=== PATIENT | female | born 1995 | race Caucasian/White ===

== ENCOUNTER 2017-02-21 11:21 | Inpatient (IN) | payer OTHER ==
[2017-02-21] VITALS (23 sets, daily range): BP systolic 98–133; BP diastolic 52–82
[~2017-02-21] VITALS: Ht 162.6 cm; Wt 69.0 kg
[2017-02-21] MEDS ORDERED: PRENTAB9 PO (11:53)
[2017-02-21] MEDS ORDERED: LACTATED RINGER'S 1000 ML IV STA (12:09)
--- NOTE | 2017-02-21 12:36 | HPEPDOC ---
Obstetrical History & Physical General Date of Admission Feb 21, 2017 at 12:08 History of Present Illness Rosana is a 21yo with read IUP at 39w3d presenting to L&D with report of large gush of fluid and continued leakage about an hour ago. Not feeling painful ctx, no vaginal bleeding, feels good movement. PMhx: benign course: benign Chief Complaint: LOF, term Information Provided By: Patient Care Care: Good Care Dating Final EDC: Feb 25, 2017 Final EDC by: LMP Antepartum Course Diagnos(e)s course: benign Height (inches): 64 Pre- weight (lbs.): 123 Admission Weight (lbs.): 155 Change in Weight (lbs.): 32 Past Medical History Past Obstetrical History : Past Obstetrical History: [employer]IAISON History: No pertinent history Past Medical History Medical History benign Surgical History: Denies/None Family History Significant Family History: No pertinent family hx Social History Marital Status: Family situation: Spouse/partner home Psychosocial History: No pertinent psych hx * Smoker: non-smoker Alcohol: Denies Drugs: denies Imunizations Tdap status: current Influenza Status: current Medications Scheduled Multivitamins/ ( 27-0.8 mg) 1 Tab Tab 1 TAB PO DAILY Physical Examination Physical Examination GENERAL: Alert and oriented times three. BREAST: . ABDOMEN: Gravid and non-tender to touch. FETUS: Is vertex (VTX) by sterile vaginal examination (SVE) HEART RATE: Regular rate and rhythm. LUNGS: Clear to auscultation (CTA). EXTREMITIES: trace edema of BLE Pertinent Laboratoy Data Blood Type: A+ RBC Antibody Screen: Negative HIV: Negative Hepatitis B: Negative Hepatitis C: Unknown Rapid Plasma Reagin: Nonreactive Rubella: Immune Varicella: Immune Chlamydia/Gonorrhea: Negative Group B Streptococcus: Negative Cystic Fibrosis: Negative Glucose Tolerance Test: 89 Anatomy Ultrasound Ultrasound Date: Oct 11, 2016 Placenta Location: Posterior Normal Anatomy: Yes Placenta Previa: No Steroid Therapy Steroid Therapy: No Vaginal Examination Dilation: 4 cm Effacement: 75% Station: -2 Cervical Consistency: Soft Cervical Position: Posterior Presentation: Cephalic presentation Assessment Heart Rate (FHR): 140 Variability: Moderate Accelerations: Positive Decelerations: None Tocometer Contractions: Yes Frequency: every 2-5 min. Duration: greater than 60 seconds Strength: palpated as mild Assessment/Plan Assessment Rosana is a 21yo with read IUP at 39w3d with PROM, grossly ruptured on exam. SCE 3-/-2. Irregular ctx. Cat I FHRT. Normal Vitals. Cephalic by SCE. GBS negative. PMhx: benign course: benign Plan Admit and orient. Bed Control Specialist and consent. Diet: clear liquids Labs and intravenous (IV) per unit protocol. Counseled on possibility of Pitocin augmentation Lactated Ringers (LR): Bolus 500 mL, then at 125 mL/hr. Anticipate normal spontaneous delivery () Dr. Rickey Fisher MD [place] MD Feb 21, 2017 12:36
[2017-02-21] MEDS: LR 1,000 ML IV SCH ×2 (12:45→20:22)
[2017-02-21 13:46] LABS: MEAN CORPUSCULAR HGB CONC 33.7 g/dl (32.0-36.5); MEAN CORPUSCULAR VOLUME 91.9 fl (80.0-96.0); RED CELL DISTRIBUTION WIDTH 12.9 % (11.5-14.5); WHITE BLOOD COUNT 9.7 K/mm3 (4.0-10.0)
[2017-02-21] MEDS ORDERED: FENTANYL 2MCG/ML ROPIVACAINE 0.2% NACL 250 ML CADD As Ordered ONE (20:25)
[2017-02-21] MEDS ORDERED: REFRIGERATOR IV KEYS XX PRN (21:30)
[2017-02-21] MEDS ORDERED: diphenhydrAMINE INJ 50MG/ML VIAL (J1200) IV PRN (21:30)
[2017-02-21] MEDS ORDERED: FENTANYL/ROPIVACAINE/NACL CADD 250 ML EPIDURAL SCH (21:30)
[2017-02-21] MEDS ORDERED: ePHEDrine SULFATE 25 MG/5 ML(5MG/ML) SYRINGE IV PRN (21:30)
[2017-02-21] MEDS ORDERED: EPIDURAL/PCA KEYS XX PRN (21:30)
[2017-02-21] MEDS ORDERED: NALOXONE INJ 0.4 MG/1 ML VIAL (J2310) IV PRN (21:30)
[2017-02-21] MEDS ORDERED: LACTATED RINGER'S 1000 ML IV PRN (21:30)
[2017-02-21] MEDS ORDERED: ONDANSETRON 4MG/2ML VIAL (J2405) IV PRN (21:30)
[2017-02-21] MEDS ORDERED: EPIDURAL COMMENT XX SCH (21:30)
[2017-02-22] VITALS (19 sets, daily range): BP systolic 101–176; BP diastolic 55–108
[2017-02-22] MEDS ORDERED: OXYTOCIN 30 UNITS IN 0.9% NaCl 500ML IV BAG (J2590) As Ordered ONE (01:29)
[2017-02-22] MEDS ORDERED: ceFAZolin 2 GM/D5W 50 ML IV BAG (J0690) As Ordered ONE (05:40)
[2017-02-22] MEDS ORDERED: BICITRA 30ML SOLN UDC As Ordered ONE (05:41)
[2017-02-22] MEDS ORDERED: BICITRA 30ML SOLN UDC PO ONE (05:45)
--- NOTE | 2017-02-22 05:47 | IPNPDOC ---
Text Note Date of Service The patient was seen on 02/22/17. NOTE Patient made excellent progress through labor to C/C/0. However, after 3 hours of pushing, she has experienced arrest of descent. Good pushing efforts, but labial edema and caput increasing with no gain in station. Patient counseled on PLTCS, all risks/benefits/alternatives discussed. Consent form signed and will proceed to OR. FHRT reassuring. Dr. Kayla Fisher MD [place]ET[place] VSRohan, I+O VSRohan, I+O Laboratory Tests 02/21/17 12:59 Red Blood Count 3.90 L, Mean Corpuscular Volume 91.9, Mean Corpuscular Hemoglobin 31.0, Mean Corpuscular Hemoglobin Concent 33.7, Red Cell Distribution Width 12.9 Vital Signs Date Time Temp Pulse Resp B/P Pulse Ox O2 Delivery O2 Flow Rate FiO2 02/22/17 01:50 102 18 111/59 02/22/17 01:22 99.5 I&O- Last 24 Hours up to 6 AM 02/22/17 06:00 Intake Total 1746 ml Output Total 650 ml Balance 1096 ml KAYLA FISHER MD Feb 22, 2017 05:47
[2017-02-22] MEDS ORDERED: LIDOCAINE PRES-FREE 2% 10ML AMP As Ordered ONE ×3 (05:51→07:24)
[2017-02-22] MEDS ORDERED: ONDANSETRON 4MG/2ML VIAL (J2405) As Ordered ONE (06:53)
[2017-02-22] MEDS ORDERED: KETOROLAC 60 MG/2 ML VIAL (J1885) As Ordered ONE (06:55)
[2017-02-22] MEDS ORDERED: MORPHINE PRES-FREE INJ 10 MG/10 ML VIAL (J2274) As Ordered ONE (06:56)
[2017-02-22] MEDS ORDERED: NALBUPHINE HCL 10 MG/ML AMP (J2300) IV PRN (06:59)
[2017-02-22] MEDS ORDERED: METOCLOPRAMIDE INJ 10MG/2ML VIAL (J2765) IV PRN (06:59)
[2017-02-22] MEDS ORDERED: ONDANSETRON 4MG/2ML VIAL (J2405) IV PRN ×2 (06:59→08:30)
[2017-02-22] MEDS ORDERED: NALOXONE INJ 0.4 MG/1 ML VIAL (J2310) IV PRN ×2 (06:59)
[2017-02-22] MEDS ORDERED: MEPERIDINE 50 MG/ML 1ML VIAL (J2175) As Ordered ONE (07:24)
[2017-02-22] MEDS ORDERED: RHOGAM 300 MCG (1500 IU) INJ (J2790) IM SCH (08:15)
[2017-02-22] MEDS ORDERED: PERCOCET 5MG/325MG TAB PO PRN ×2 (08:15→08:30)
[2017-02-22] MEDS ORDERED: MEASLES,MUMPS,RUBELLA VACCINE INJ (MMR-II) (90707) SC SCH (08:15)
[2017-02-22 08:19] LABS: CORD GAS ABE V -3.2; CORD GAS HCO3 V 24.4 MEQ/L; CORD GAS O2 SAT V 22.1 %; CORD GAS PCO2 V 53.7 mmHg; CORD GAS PH V 7.276 UNITS; CORD GAS PO2 V 14.6 mmHg; CORD GAS SBC V 19.9 MEQ/L; CORD GAS TCO2 V 26.1 MEQ/L
[2017-02-22 08:20] LABS: CORD GAS ABE A -2.7; CORD GAS HCO3 A 25.2 MEQ/L; CORD GAS O2 SAT A 16.3 %; CORD GAS PCO2 A 55.6 mmHg; CORD GAS PH A 7.274 UNITS; CORD GAS PO2 A 12.3 mmHg; CORD GAS SBC A 20.2 MEQ/L; CORD GAS TCO2 A 26.9 MEQ/L
[2017-02-22] MEDS ORDERED: fentaNYL 100 MCG/2 ML INJECTION (J3010) IV PRN (08:30)
[2017-02-22] MEDS ORDERED: LR 1,000 ML IV SCH (08:30)
[2017-02-22] MEDS: PRENATAL VITAMIN TAB PO SCH (09:00)
[2017-02-22] MEDS: DOCUSATE SODIUM 100 MG CAP PO SCH ×2 (09:00→21:00)
--- NOTE | 2017-02-22 09:18 | RO ---
DATE OF PROCEDURE: 02/22/2017 PREPROCEDURE DIAGNOSES: Term intrauterine with spontaneous rupture of membranes. Arrest of descent. POSTPROCEDURE DIAGNOSES: Term intrauterine with spontaneous rupture of membranes. Arrest of descent. SURGEON: Kayla Fisher MD DIGITAL PRINTER: Nick Arevalo MD CLINICAL SERVICE: Gynecology. MATERIAL FORWARDED TO THE LAB FOR EXAMINATION: Cord gases. INDICATION FOR OPERATION: Rosana is a 21-year-old 1, para 1-0-0-1 who had spontaneous rupture of membranes at 39 weeks and 3 days and progressed well in labor to complete complete, 0 station and experienced arrest of descent after pushing for 3 hours. DESCRIPTION OF FINDINGS: Female in cephalic presentation. 6 and 9. Weight 3544 grams or 7 pounds 13 ounces. Meconium was noted on entry into the uterus, otherwise she had normal appearing uterus, tubes and ovaries. INFECTION CLASSIFICATION: 2. ESTIMATED BLOOD LOSS: 500 mL. IV FLUIDS: 1900 mL lactated ringers. URINE OUTPUT: 600 mL of blood tinged urine. OPERATION PERFORMED: Primary low transverse section. DESCRIPTION OF OPERATION: After obtaining informed consent, Rosana was taken to the operating room. Morrison catheter was in place secondary to her epidural. Bilateral sequential compression devices were placed. She received 2 grams of IV Ancef prophylactically. She was prepped and draped in normal sterile fashion in dorsal supine position with a left lateral tilt. Time out was performed to confirm patient name, date of , procedure and indication. Surgical team, nursing staff, pediatrics and anesthesia were all in agreement. Epidural anesthesia was found to be adequate using Allis clamp and a Pfannenstiel skin incision was made with a scalpel and carried through to the underlying layer of fascia with the Bovie. The fascia was incised in the midline and the incision was extended laterally with Alvarenga scissors. Superior and inferior aspects of the facial incision were grasped with Juliana clamps, elevated and the underlying rectus muscles were dissected off bluntly and sharply. Peritoneum was entered digitally and the rectus muscles were in the midline. Peritoneal incision was extended superiorly and inferiorly with good visualization of the bladder. Bladder blade was inserted. The vesicouterine peritoneum was identified, grasped with pickups and entered sharply with Metzenbaum scissors. The incision was extended laterally and the bladder flap was created digitally. Bladder blade was reinserted and the lower uterine segment was scored in a transverse fashion with a scalpel. Uterus was entered bluntly and the incision was extended with traction. Bladder blade was removed and the infant's head was elevated to the level of the incision with use of forceps (head was deep in the pelvis from pushing efforts). Fundal pressure was applied and head was delivered atraumatically in the OA position. Anterior shoulder, posterior shoulder and corpus were delivered without difficulty. Nose and mouth were suctioned with bulb suction. Cord was clamped and cut and the was handed off to the awaiting nursing staff. Cord gases were obtained secondary to presence of meconium. Placenta was removed with uterine massage and traction on the umbilical cord and the uterus was exteriorized and cleared of all clot and debris. Uterine incision was repaired with #0 Vicryl suture in a running locking fashion and a second layer of #0 Monocryl was used to close the hysterotomy in an imbricating fashion. Uterine incision was inspected. Hemostasis noted. Posterior cul-de-sac was irrigated and the uterus was returned to the abdomen. Gutters were cleared of all clot and irrigated with hemostasis noted. Peritoneum was closed using #3-0 Vicryl suture in a running fashion. Rectus muscles were reapproximated with grwrxu-vo-[id number] stitch using #0 Vicryl suture. Fascia was reapproximated using #0 Vicryl suture in a running fashion. Subcutaneous tissue was copiously irrigated. The skin edges were reapproximated using three inverted interrupted stitches using #3-0 Vicryl suture. She did not need Bee's fascia to be reapproximated given her thin layer of subcutaneous tissue. The skin was closed with running subcuticular stitch using #4-0 Monocryl. Incision was cleaned using a wet lap and dried with a dry lap. Steri-Strips were applied in the usual fashion perpendicular to Pfannenstiel incision. Telfa was layered on top of the Steri-Strips followed by a dry sterile towel. Surgical drapes were removed and sterile towel was removed. Pressure dressing was applied over the entire surgical incision. Vagina was cleared of all blood clots without active bleeding noted. The fundus was firm at U -1 cm. All counts were correct times two. Procedure was without complication. She tolerated the procedure well and was taken to the recovery room in labor and delivery in stable condition. ALTHEA
[2017-02-22] MEDS: KETOROLAC 30 MG/ML VIAL (J1885) IV SCH ×2 (13:08→18:54)
[2017-02-23] MEDS: KETOROLAC 30 MG/ML VIAL (J1885) IV SCH ×3 (01:30→08:27)
[2017-02-23] MEDS: PERCOCET 5MG/325MG TAB PO PRN ×3 (01:41→19:01)
[2017-02-23 02:30] VITALS: BP 115/64
[2017-02-23 06:14] VITALS: BP 106/51
[2017-02-23 07:07] LABS: MEAN CORPUSCULAR HEMOGLOBIN 31.3 pg (27.0-33.0); MEAN CORPUSCULAR HGB CONC 33.3 g/dl (32.0-36.5); MEAN CORPUSCULAR VOLUME 94.1 fl (80.0-96.0); RED CELL DISTRIBUTION WIDTH 13.4 % (11.5-14.5); WHITE BLOOD COUNT 20.4 K/mm3 (4.0-10.0)
[2017-02-23] MEDS: PRENATAL VITAMIN TAB PO SCH (08:23)
[2017-02-23] MEDS: DOCUSATE SODIUM 100 MG CAP PO SCH ×2 (08:23→22:02)
[2017-02-23] MEDS: IBUPROFEN 800 MG TAB PO SCH ×2 (08:52→17:44)
[2017-02-23 10:00] VITALS: BP 114/58
[2017-02-23 14:00] VITALS: BP 110/68
--- NOTE | 2017-02-23 16:54 | IPNPDOC ---
Text Note Date of Service The patient was seen on 02/23/17. NOTE Post-Op Day 1 Rosana is a 21yo [id number] doing well on post-op day 1 s/p uncomplicated PLTCS indicated for arrest of descent at 39w4d after presenting for SROM. She is . Lochia normal, spontaneously voiding and ambulating without difficulty. Tolerating regular diet. Denies f/c/n/v/SOB/CP/KENDRICK/abdominal pain. Vitals wnl, afebrile Exam: General: WDWN, NAD, resting comfortably Abdomen: soft, NTTP, fundus firm u-2cm, pfannensteil with no surrounding erythema, no drainage, steri strips in place Extremities: no tenderness of calves bilaterally H/H (admission) 12.1/35.8 H/H (POD 1) 11.1/33.4 Surgical EBL 500ml Assessment: Rosana is a 21yo [id number] doing well on post-op day 1 s/p uncomplicated PLTCS indicated for arrest of descent at 39w4d after presenting for SROM. Vitals wnl, benign exam. No e/o infection, hemodynamically stable. Plan: -routine /post-operative care -ibuprofen/percocet for pain control -encourage , ambulation and use of IS -likely discharge to home tomorrow Dr. Rickey Fisher MD [place] Wu, I+O Rohan HARRIS I+O Laboratory Tests 02/23/17 06:34 Red Blood Count 3.55 L, Mean Corpuscular Volume 94.1, Mean Corpuscular Hemoglobin 31.3, Mean Corpuscular Hemoglobin Concent 33.3, Red Cell Distribution Width 13.4 Vital Signs Date Time Temp Pulse Resp B/P Pulse Ox O2 Delivery O2 Flow Rate FiO2 02/23/17 14:00 97.6 94 18 110/68 99 02/23/17 02:30 Room Air I&O- Last 24 Hours up to 6 AM 02/23/17 05:59 Intake Total 6320 ml Output Total 8400 ml Balance -2080 ml RICKEY FISHER MD Feb 23, 2017 16:54
[2017-02-23 18:18] VITALS: BP 116/71
[2017-02-23 22:31] VITALS: BP 104/59
[2017-02-24] MEDS: PERCOCET 5MG/325MG TAB PO PRN ×2 (01:05→05:06)
[2017-02-24] MEDS: IBUPROFEN 800 MG TAB PO SCH ×2 (01:06→08:24)
[2017-02-24 06:00] VITALS: BP 114/73
--- NOTE | 2017-02-24 06:41 | IPNPDOC ---
Text Note Date of Service The patient was seen on 02/24/17. NOTE Post-Op Day 2 Rosana is a 21yo [id number] doing well on post-op day 2 s/p uncomplicated PLTCS indicated for arrest of descent at 39w4d after presenting for SROM. She is . Lochia normal, spontaneously voiding and ambulating without difficulty. Tolerating regular diet. Denies f/c/n/v/SOB/CP/KENDRICK/abdominal pain. Vitals wnl, afebrile Exam: General: WDWN, NAD, resting comfortably Cardiac: S1S2 present, no murmurs Lungs: CTAB, no w/c/r Abdomen: soft, NTTP, fundus firm u-2cm, pfannensteil with no surrounding erythema, no drainage, steri strips in place Extremities: no tenderness of calves bilaterally H/H (admission) 12.1/35.8 H/H (POD 1) 11.1/33.4 Surgical EBL 500ml Assessment: Rosana is a 21yo [id number] doing well on post-op day 2 s/p uncomplicated PLTCS indicated for arrest of descent at 39w4d after presenting for SROM. Vitals wnl, benign exam. No e/o infection, hemodynamically stable. Plan: -discharge to home today -Patient has home meds for discharge: percocet, motrin, miralax, minipill, lanolin -encourage -follow up with me in clinic in 2 weeks for incision check and then [address] Rickey Rodriguez MD [place] Rohan BEAVERS, I+O VSRohan, I+O Vital Signs Date Time Temp Pulse Resp B/P Pulse Ox O2 Delivery O2 Flow Rate FiO2 02/24/17 06:00 96.9 97 18 114/73 97 Room Air I&O- Last 24 Hours up to 6 AM 02/24/17 06:00 Output Total 600 ml Balance -600 ml RICKEY RODRIGUEZ MD Feb 24, 2017 06:41
--- NOTE | 2017-02-24 06:47 | DS.PDOC ---
Discharge Summary General Date of Admission Feb 21, 2017 at 12:08 Date of Discharge Feb 24, 2017 Attending Physician: RICKEY FISHER MD Discharge Summary PROCEDURES PERFORMED DURING STAY: Primary low transverse section ADMITTING DIAGNOSES: 1. Term intrauterine with spontaneous rupture of membranes DISCHARGE DIAGNOSES: 1. Term intrauterine with spontaneous rupture of membranes 2. Arrest of descent at 0 station after 3 hours of pushing COMPLICATIONS/CHIEF COMPLAINT: Spontaneous rupture of membranes HISTORY OF PRESENT ILLNESS/ HOSPITAL COURSE: Rosana is a 21 year old [id number] status post uncomplicated primary low transverse section indicated for arrest of descent at 39weeks 4days after presenting for spontaneous rupture of membranes, having normal labor course and then pushing for 3 hours with no progression of head beyond 0 station. Benign course. At time of discharge, vitals were within normal limits with benign exam. No evidence of infection, hemodynamically stable. DISCHARGE MEDICATIONS: percocet, motrin, lanolin, minipill, miralax ALLERGIES: Please see below. PHYSICAL EXAMINATION ON DISCHARGE: Vitals wnl, afebrile Exam: General: WDWN, NAD, resting comfortably Cardiac: S1S2 present, no murmurs Lungs: CTAB, no w/c/r Abdomen: soft, NTTP, fundus firm u-2cm, pfannensteil with no surrounding erythema, no drainage, steri strips in place Extremities: no tenderness of calves bilaterally LABORATORY DATA: H/H (admission) 12.1/35.8 H/H (POD 1) 11.1/33.4 Surgical EBL 500ml ACTIVITY: As tolerated, vaginal rest x 6 weeks, no heavy lifting greater than weight of baby DIET: regular DISCHARGE PLAN: -follow up in clinic in 2 weeks for incision check and then in 6 weeks for routine visit DISPOSITION: home DISCHARGE INSTRUCTIONS: -keep incision clean and dry -take pain medications as needed (motrin and percocet) DISCHARGE CONDITION: Stable TIME SPENT ON DISCHARGE: Greater than [address] Rickey Fisher MD [place] Vital Signs/I&Os Vital Signs Date Time Temp Pulse Resp B/P Pulse Ox O2 Delivery O2 Flow Rate FiO2 02/24/17 06:00 96.9 97 18 114/73 97 Room Air I&O- Last 24 Hours up to 6 AM 02/24/17 06:00 Output Total 600 ml Balance -600 ml Discharge Medications Scheduled Multivitamins/ ( 27-0.8 mg) 1 Tab Tab 1 TAB PO DAILY (Reported ) Allergies Coded Allergies: No Known Allergies (Unverified , 02/21/17) RICKEY FISHER MD Feb 24, 2017 06:47
[2017-02-24] MEDS ORDERED: IBUP-1114 PO (07:36)
[2017-02-24] MEDS ORDERED: OXYC1TAB23 PO (07:36)
[2017-02-24] MEDS: PRENATAL VITAMIN TAB PO SCH (08:25)
[2017-02-24] MEDS: DOCUSATE SODIUM 100 MG CAP PO SCH (08:25)
== END 2017-02-24 12:05 | disposition home or self-care (01) | DRG 766 ==
LOC: M LDO 11:21 → M LDI 12:08 → M OBS 02-22 09:34
PROVIDERS: ADMIT Obstetrics & Gynecology; ATTEND Obstetrics & Gynecology
PROC: 10D00Z1 Extraction of Products of Conception, Low, Open Approach (ICD-10-PCS; principal; 2017-02-22 06:39)
DX: O32.4XX0 Maternal care for high head at term, not applicable or unspecified (principal); Z37.0 Single live birth; Z3A.39 39 weeks gestation of pregnancy; O77.0 Labor and delivery complicated by meconium in amniotic fluid